=== PATIENT | male | born 1990 | race Caucasian/White ===

== ENCOUNTER 2025-03-19 08:25 | Emergency (ER) | payer BC, SELFPAY ==
[2025-03-19 08:29] VITALS: BP 170/118
--- NOTE | 2025-03-19 09:35 | ED.GENMED ---
History of Present Illness
General
Chief Complaint: Back Pain
Source: patient
Exam Limitations: none
Time Seen by Provider: 03/19/25 09:08
Nursing documentation reviewed up to this point in time: agreed with
History of Present Illness
History of Present Illness:
34-year-old male with history of ADHD on methylphenidate, on Zepbound for weight loss for the past year, takes Motrin 600 mg daily for pain. 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
low back pain, tingling and numbness in both legs. He states he developed mild low back pain yesterday after lifting a moped up into his vehicle. The pain started gradually and he developed some 'trouble standing up straight' due to the pain. He
took ibuprofen 600 mg 9 PM and slept well through the night. He got up at 630 this morning and had trouble moving due to the pain. When he stood out of bed he states 'everything got numb and tingly from my low back down both my legs to my feet.'
He states since then he has noted some tingling mainly on the insides of his thighs and in his left big toe. The symptoms seem to be worse on the left side. His low back pain is just to the left of his lumbar spine. Denies loss of bowel or
bladder control. He states the pain is worse when transitioning from sit to stand and vice versa. There are certain movements like leaning to his right that relieves some of the pain and allows more movement.
He walked from the parking lot into the emergency department.
Past History
Past History
ED Past Medical History: Psychiatric (ADHD, obesity on Zepbound) and Other
ED Past Surgical History: Tonsilectomy and Other ([place] teeth)
Social History
Tobacco: Non-smoker
Alcohol: Occasional
Personal:
Living: with family
Employment: Employed
Review of Systems
Review of Systems
Allergies reviewed?: Yes
All Other Systems: ROS reviewed and negative except as documented in HPI and ROS
Constitutional: Denies fever
ABD/GI: Denies abdominal pain
: Denies incontinence or difficulty voiding
Musculoskeletal: Reports back pain
Skin: Reports no symptoms
Neurological: Denies weakness
Phy Exam
Physical Exam
Physical Exam:
GENERAL: No acute distress. A&Ox3.
CONSTITUTIONAL: Afebrile.
EYES: clear, conjunctivae normal
ENMT: moist mucus membranes
RESPIRATORY: Regular respirations, nonlabored, lungs clear.
CARDIOVASCULAR: Regular rate and rhythm, no murmurs, no rubs.
GI: Soft, nontender, normal BS
MUSCULOSKELETAL: Point tender just to the left of mid lumbar spine and allSI joint area. Difficulty moving due to pain. Well perfused.
SKIN: Warm, dry, pink
PSYCH: Normal mood and affect. Well kept, interactive and appropriate
NEUROLOGIC: Awake, alert and oriented. No focal neurological deficits. Sensation to touch equal throughout. Dorsi and plantar flexion w 5/5 strength. Equal patellar and achilles reflexes 2/4.
Course
Orders/Labs/Results
Orders:
Orders
03/19/25 09:35
Ketorolac [Toradol] 15 mg IV NOW STA
diazePAM [Valium Injection] 5 mg IV NOW STA
03/19/25 09:58
Acetaminophen [Tylenol] 1,000 mg .ROUTE .STK-MED ONE
03/19/25 11:03
Dexamethasone Sod Phosphate [Decadron] 10 mg IV NOW STA
Vital Signs
Initial and Last Documented VS:
Initial Vital Signs
Temp Pulse Resp Pulse Ox
98.2 F 92 18 99
03/19/25 08:28 03/19/25 08:28 03/19/25 08:28 03/19/25 08:28
Last Documented Vital Signs
Temp Pulse Resp BP Pulse Ox
98.2 F 92 16 118/77 98
03/19/25 08:28 03/19/25 11:39 03/19/25 11:39 03/19/25 11:39 03/19/25 11:39
MDM/Problems Addressed
Differential Diagnosis Includes:
Low back strain, SI joint sprain, sciatica, bulging/herniated disc
MDM/Problems Addressed:
34-year-old male with history of ADHD on methylphenidate, on Zepbound for weight loss for the past year, takes Motrin 600 mg daily for pain. 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
low back pain, tingling and numbness in both legs. He states he developed mild low back pain yesterday after lifting a moped up into his vehicle. The pain started gradually and he developed some 'trouble standing up straight' due to the pain. He
took ibuprofen 600 mg 9 PM and slept well through the night. He got up at 630 this morning and had trouble moving due to the pain. When he stood out of bed he states 'everything got numb and tingly from my low back down both my legs to my feet.'
He states since then he has noted some tingling mainly on the insides of his thighs and in his left big toe. The symptoms seem to be worse on the left side. His low back pain is just to the left of his lumbar spine. Denies loss of bowel or
bladder control. He states the pain is worse when transitioning from sit to stand and vice versa. There are certain movements like leaning to his right that relieves some of the pain and allows more movement.
He walked from the parking lot into the emergency department.
No direct impact, no indication for imaging at this time. Pain immediately to left of mid lumbar spine and SI willow. [place] area.
11:00 a.m.
In to reevaluate after IV Toradol and Valium: Feeling much better, has been OOB and ambulated to bathroom more comfortably.
Plan: Rx for Flexeril sent to his, he does not want any more steroids. Ibuprofen and f/u with PCP
Work note given.
Pt DC'd via wheelchair, ambulated from wheelchair to car per tech who wheeled him out.
*Pulse Oximetry
SaO2: 99
Patient hypoxic: not evaluated
*Critical Care Note
Total Time (30-74mins, 75-104mins- exclusive of procedures): Not Applicable
ED Attending Note
-
Portions of this chart may have been created with voice recognition software.� Occasional wrong word or��sound alike� substitutions may have occurred due to the inherent limitations of voice recognition software.
Discharge Plan
Departure
Patient Disposition: Home (Routine Discharge)
Date of Disposition: 03/19/25
Time of Disposition: 11:03
Patient with high blood pressure during this ER visit?: No
Condition: Good
Discharge Problem:
Low back strain, Sciatica
Instructions: Low Back Pain (DC), Cyclobenzaprine, Sacroiliac joint pain - ED (DC)
Prescriptions:
New
cyclobenzaprine 10 mg tablet
10 mg PO TID PRN (Reason: back pain/spasms) Qty: 20 0RF
Referrals:
Ashutosh Triana CRNP [Family Provider, General] - As needed
Stand Alone Forms: Return to Work
Activity Restrictions/Additional Instructions:
As we discussed, you were given a dose of steroid, Decadron, here today. It may take 12 to 24 hours to kick in but it will last for about 3 days.
Ibuprofen 600 mg, with food, every 6 hours as needed for pain.
I sent a prescription to your pharmacy for cyclobenzaprine (Flexeril) muscle relaxant to take up to every 8 hours as needed
Heating pad may help
See your doctor if you are not much improved by the end of the week
Interventions
Interventions:
*Risk Screen - Suicide Last Done: 03/19/25 09:53
*Nursing Disposition Last Done: 03/19/25 11:48
ED-Musculoskeletal Assessment Last Done: 03/19/25 09:52
Discharge Date and Time
Discharge Date/Time: 03/19/25 11:49
Print Language: AMHARIC
[2025-03-19] MEDS: TORADOL 15 MG IV (09:39)
[2025-03-19] MEDS: VALIUM INJECTION 5 MG IV (09:39)
[2025-03-19 10:35] VITALS: BP 126/78; BMI 41.0
[2025-03-19] MEDS: DECADRON 10 MG IV (11:33)
[2025-03-19 11:39] VITALS: BP 118/77
== END 2025-03-19 11:49 | disposition home or self-care (01) ==
LOC: EMR 08:25
PROVIDERS: EMERGENCY PHYSICIAN Emergency Medicine; FAMILY PHYSICIAN Nurse Practitioner Gerontology
DX: M54.40 Lumbago with sciatica, unspecified side (principal); S39.012A Strain of muscle, fascia and tendon of lower back, initial encounter; X58.XXXA Exposure to other specified factors, initial encounter; F90.9 Attention-deficit hyperactivity disorder, unspecified type; E66.9 Obesity, unspecified
CPT/HCPCS: 99282; 96374; 96375